=== PATIENT | male | born 2000 | race Caucasian/White ===

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

== ENCOUNTER 2020-06-25 09:24 | Emergency (ER) | payer BC, OTHER ==
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
--- NOTE | 2020-06-25 10:46 | CT ---
Head CT Technique: Multiple axial sections through the brain were obtained. Intravenous contrast was not utilized. Reconstructed coronal and sagittal images were obtained. Comparison: No prior intracranial imaging is available. Findings: Ventricles along with basal cisterns and sulci over the convexities are within normal limits for the patient's age. No abnormal parenchymal densities are seen. No evidence of intracranial hemorrhage. No midline shift or mass-effect is appreciated. Bone window settings were reviewed. Visualized mastoid and paranasal sinuses show nothing acute. No acute osseous abnormality is appreciated. Impression: 1. Nothing acute is appreciated on noncontrast head CT exam. Diagnostic code #1
--- NOTE | 2020-06-25 10:49 | CT ---
CT facial bones Technique: Multiple axial sections through the facial bones were obtained. Reconstructed coronal and sagittal images were also obtained. Comparison: No prior facial bone study. Findings: Minimal areas of mucosal thickening are noted within the inferior left maxillary sinus. Other paranasal sinuses are clear. Right and left globes are symmetric. No retrobulbar abnormality is appreciated. No facial bone fracture is appreciated. No mandibular fracture is appreciated. Impression: 1. Nothing acute is appreciated on CT study of the facial bones. 2. Incidental note of minimal mucosal thickening within the left maxillary sinus. Diagnostic code #2
[2020-06-25 15:42] VITALS: BP 120/80; PULSE 64
== END 2020-06-25 11:50 | disposition home or self-care (01) ==
LOC: JD.ED 09:24
DX: S09.90XA Unspecified injury of head, initial encounter (principal); S02.5XXA Fracture of tooth (traumatic), initial encounter for closed fracture; W01.10XA Fall on same level from slipping, tripping and stumbling with subsequent striking against unspecified object, initial encounter
CPT/HCPCS: 70450; 70450-26; 70486; 70486-26; 99284; 99284-25